=== PATIENT | female | born 1970 | race Caucasian/White ===

== ENCOUNTER 2017-02-02 19:46 | Emergency (ER) | payer BC ==
[2017-02-02 20:28] VITALS: BP 110/74
--- NOTE | 2017-02-02 20:31 | UC ---
Throat Pain/Nasal René HPI - HPI Summary HPI Summary: complaint of sore throat that started yesterday pain has been increasing fever started today denies nasal congestion and cough feels like her body is aching daughter has strep throat took some ibuprofen at 1900 with some relief 3 weeks late for menses LMP 12/20/16 took home tests that were negative last week doesn't feel - usually gets morning sickness, denies breast tenderness or fatigue - History of Current Complaint Chief Complaint: UCRespiratory Stated Complaint: THROAT PAIN Time Seen by Provider: 02/02/17 20:28 Hx Obtained From: Patient Hx Last Menstrual Period: 3 weeks late - Allergies/Home Medications Allergies/Adverse Reactions: Allergies Allergy/AdvReac Type Severity Reaction Status Date / Time No Known Allergies Allergy Verified 02/02/17 20:28 PMH/Surg Hx/FS Hx/Imm Hx Previously Healthy: Yes - Surgical History Surgical History: Yes Surgery Procedure, Year, and Place: sinus - Family History Known Family History: Negative: Cardiac Disease, Hypertension, Diabetes - Social History Occupation: Employed Full-time Lives: With Family Alcohol Use: None Substance Use Type: None Smoking Status (MU): Never Smoked Tobacco Review of Systems Constitutional: Fever Skin: Negative Eyes: Negative ENT: Sore Throat Respiratory: Negative Cardiovascular: Negative Gastrointestinal: Negative Genitourinary: Negative Motor: Negative Neurovascular: Negative Musculoskeletal: Negative Neurological: Negative Psychological: Negative All Other Systems Reviewed And Are Negative: Yes Physical Exam Triage Information Reviewed: Yes Appearance: No Pain Distress, Well-Nourished Vital Signs: Initial Vital Signs Temp 99.8 F 02/02/17 20:22 Pulse 104 02/02/17 20:22 Resp 16 02/02/17 20:22 BP 110/74 02/02/17 20:22 Pulse Ox 99 02/02/17 20:22 Vital Signs Reviewed: Yes Eyes: Positive: Conjunctiva Clear ENT: Positive: Pharyngeal erythema, TMs normal. Negative: Nasal congestion, Nasal drainage Dental: Positive: Cervical Lymphadenopathy Respiratory: Positive: Lungs clear, Normal breath sounds, No respiratory distress Cardiovascular: Positive: RRR, No Murmur, Pulses Normal Abdomen Description: Positive: Nontender, Soft Bowel Sounds: Positive: Present Musculoskeletal: Positive: No Edema Neurological: Positive: Alert Psychological Exam: Normal Skin Exam: Normal Throat Pain/Nasal Course/Dx - Differential Dx/Diagnosis Differential Diagnosis/HQI/PQRI: Pharyngitis, Tonsillitis, Other - strep Provider Diagnoses: strep pharyngitis Discharge - Discharge Plan Condition: Stable Disposition: HOME Prescriptions: Penicillin VK TAB* [Penicillin VK 250 mg Tab*] 500 mg PO TID #30 tab Patient Education Materials: Strep Throat (ED) Referrals: No Primary Care Phys,NOPCP [Primary Care Provider] - [facility] [place] [facility] [Outside] Additional Instructions: Start antibiotic as directed Increase fluids and rest Take acetaminophen or ibuprofen for fever or pain Please review your discharge instructions. If your symptoms do not improve please call your primary care provider or return to urgent care
[2017-02-02] MEDS ORDERED: Penicillin VK TAB* 250 MG PO ONE (20:50)
== END 2017-02-02 21:00 | disposition home or self-care (01) ==
LOC: UCEAST 19:46
DX: J02.0 Streptococcal pharyngitis (principal); Z32.02 Encounter for pregnancy test, result negative
CPT/HCPCS: 84702; 87651; 99212; A9270-GY; G0463

== ENCOUNTER 2017-02-21 19:39 | Emergency (ER) | payer BC ==
[2017-02-21 20:21] VITALS: BP 111/75
[2017-02-21] MEDS ORDERED: Amoxicillin CAP* 500 MG PO ONE (20:44)
--- NOTE | 2017-02-21 20:50 | UC ---
Throat Pain/Nasal René HPI - HPI Summary HPI Summary: ST since yesterday, [place] for the last week or so. Pt and 3 kids all tx for strep 2.5 weeks ago, all got better, now all sick again and 3 kids dx with strep again over the weekend. Denies fever or trouble breathing. - History of Current Complaint Chief Complaint: UCGeneralIllness Stated Complaint: SORE THROAT Time Seen by Provider: 02/21/17 20:22 Hx Obtained From: Patient Hx Last Menstrual Period: 02/07/2017 Onset/Duration: Gradual Onset, Lasting Hours Severity: Moderate Cough: None Associated Signs & Symptoms: Negative: Fever, Vomiting, Rash - Allergies/Home Medications Allergies/Adverse Reactions: Allergies Allergy/AdvReac Type Severity Reaction Status Date / Time No Known Allergies Allergy Verified 02/21/17 20:14 Home Medications: Home Medications Multi Vitamin with Iron 1 tab PO DAILY 02/21/17 [History Confirmed 02/21/17] PMH/Surg Hx/FS Hx/Imm Hx Endocrine History Of: Denies: Diabetes, Thyroid Disease Cardiovascular History Of: Denies: Cardiac Disorders, Hypertension Respiratory History Of: Denies: COPD, Asthma GI/ History Of: Denies: Ulcer - Surgical History Surgical History: Yes Surgery Procedure, Year, and Place: sinus - Family History Known Family History: Negative: Cardiac Disease, Hypertension, Diabetes - Social History Alcohol Use: None Substance Use Type: None Smoking Status (MU): Never Smoked Tobacco - Immunization History Most Recent Influenza Vaccination: years ago Most Recent Tetanus Shot: unknown Review of Systems Constitutional: Negative Skin: Negative Eyes: Negative ENT: Sore Throat Respiratory: Negative Cardiovascular: Negative Gastrointestinal: Negative Genitourinary: Negative Motor: Negative Neurovascular: Negative Musculoskeletal: Negative Neurological: Negative Psychological: Negative All Other Systems Reviewed And Are Negative: Yes Physical Exam Triage Information Reviewed: Yes Appearance: Well-Appearing, No Pain Distress, Well-Nourished Vital Signs: Initial Vital Signs Temp 99.0 F 02/21/17 20:15 Pulse 86 02/21/17 20:15 Resp 17 02/21/17 20:15 BP 111/75 02/21/17 20:15 Pulse Ox 100 02/21/17 20:15 Vital Signs Reviewed: Yes Eye Exam: Normal Eyes: Positive: Conjunctiva Clear ENT: Positive: Hearing grossly normal, Pharyngeal erythema - mild, TMs normal, Tonsillar swelling Dental Exam: Normal Neck exam: Normal Neck: Positive: Supple, Nontender Respiratory Exam: Normal Respiratory: Positive: Chest non-tender, Lungs clear, Normal breath sounds, No respiratory distress, No accessory muscle use Cardiovascular Exam: Normal Cardiovascular: Positive: RRR, No Murmur Musculoskeletal Exam: Normal Neurological Exam: Normal Neurological: Positive: Alert Psychological Exam: Normal Skin Exam: Normal Throat Pain/Nasal Course/Dx - Differential Dx/Diagnosis Provider Diagnoses: strep throat Discharge - Discharge Plan Condition: Stable Disposition: HOME Prescriptions: Amoxicillin (*) [Amoxicillin 875 MG (*)] 875 mg PO BID #19 tab Patient Education Materials: Strep Throat (ED) Referrals: No Primary Care Phys,NOPCP [Primary Care Provider] -
== END 2017-02-21 20:50 | disposition home or self-care (01) ==
LOC: UCEAST 19:39
DX: J02.0 Streptococcal pharyngitis (principal)
CPT/HCPCS: 87651; 99212; A9270-GY; G0463

== ENCOUNTER 2017-03-08 19:50 | Emergency (ER) | payer BC ==
[2017-03-08 21:22] VITALS: BP 126/69
--- NOTE | 2017-03-08 21:47 | UC ---
Throat Pain/Nasal René HPI - HPI Summary HPI Summary: Pt presents with c/o sore throat. Pt states that her children have been "passing strep throat throughout the house" Pt was diagnosed with strep thorat 1 months ago. Pt's son was diagnosed today with strep today. - History of Current Complaint Chief Complaint: UCRespiratory Stated Complaint: SORE THROAT Time Seen by Provider: 03/08/17 21:21 Hx Obtained From: Patient Hx Last Menstrual Period: 02/07/2017 ?: No Onset/Duration: Sudden Onset, Lasting Hours Severity: Mild Cough: None Associated Signs & Symptoms: Positive: Dysphagia - Epiglottits Risk Factors Epiglottis Risk Factors: Sudden Onset - Allergies/Home Medications Allergies/Adverse Reactions: Allergies Allergy/AdvReac Type Severity Reaction Status Date / Time No Known Allergies Allergy Verified 02/21/17 20:14 PMH/Surg Hx/FS Hx/Imm Hx Previously Healthy: Yes Endocrine History Of: Denies: Diabetes, Thyroid Disease Cardiovascular History Of: Denies: Cardiac Disorders, Hypertension Respiratory History Of: Denies: COPD, Asthma GI/ History Of: Denies: Ulcer - Surgical History Surgical History: Yes Surgery Procedure, Year, and Place: sinus - Family History Known Family History: Negative: Cardiac Disease, Hypertension, Diabetes - Social History Lives: With Family Alcohol Use: None Substance Use Type: None Smoking Status (MU): Never Smoked Tobacco - Immunization History Most Recent Influenza Vaccination: years ago Most Recent Tetanus Shot: unknown Review of Systems Constitutional: Negative Skin: Negative Eyes: Negative ENT: Sore Throat Respiratory: Negative Cardiovascular: Negative Gastrointestinal: Negative Genitourinary: Negative Motor: Negative Neurovascular: Negative Musculoskeletal: Myalgia Neurological: Headache Psychological: Negative All Other Systems Reviewed And Are Negative: Yes Physical Exam Triage Information Reviewed: Yes Appearance: Well-Appearing Vital Signs: Initial Vital Signs Temp 98.5 F 03/08/17 21:15 Pulse 87 03/08/17 21:15 Resp 18 03/08/17 21:15 BP 126/69 03/08/17 21:15 Pulse Ox 100 03/08/17 21:15 Eye Exam: Normal ENT Exam: Other ENT: Positive: Pharyngeal erythema Neck: Positive: Enlarged Nodes @ - bialtaeral submandibualr Respiratory Exam: Normal Cardiovascular Exam: Normal Musculoskeletal Exam: Normal Neurological Exam: Normal Psychological Exam: Normal Skin Exam: Normal Throat Pain/Nasal Course/Dx - Differential Dx/Diagnosis Differential Diagnosis/HQI/PQRI: Pharyngitis, Tonsillitis Provider Diagnoses: Pharyngitis Discharge - Discharge Plan Condition: Stable Disposition: HOME Prescriptions: Penicillin VK TAB 500 MG(NF) [Penicillin VK 500 mg Tab(NF)] 500 mg PO Q8H #21 tab Patient Education Materials: Pharyngitis (ED) Referrals: [facility] [place] [facility] [Outside] No Primary Care Phys,NOPCP [Primary Care Provider] - If Needed Additional Instructions: Please follow up with your PCP or return to clinic as needed.
[2017-03-08] MEDS ORDERED: Penicillin VK LIQ* 250 MG/5 ML BTL PO ONE (21:51)
== END 2017-03-08 22:30 | disposition home or self-care (01) ==
LOC: UCEAST 19:50
DX: J02.9 Acute pharyngitis, unspecified (principal)
CPT/HCPCS: 87651; 99212; A9270-GY; G0463

== ENCOUNTER 2019-07-06 06:37 | Day surgery (SDC) | payer BC ==
--- NOTE | 2019-06-28 06:55 | HP ---
CC: Dr. Octavio Robert * ADMITTING HISTORY AND PHYSICAL: DATE OF ADMISSION: 07/06/19 - [facility] ADMITTING DIAGNOSIS: Bladder lesion. PLANNED PROCEDURE: Cystoscopy, excision biopsy of bladder lesion. SURGEON: Dr. Melendez. HISTORY OF PRESENT ILLNESS: Nancy Cesar is a 48-year-old lady who for the last 10 days has had increased urinary frequency, urgency, and discomfort associated with the full bladder. She was evaluated by Dr. Robert who originally on examination noted what appeared to be a mass in the area of the dome of the bladder. It was subsequently confirmed by him on a pelvic sonogram. Cystoscopy done in my office revealed 2 to 3 cm near the dome of the bladder with the mass effect but completely normal overlying mucosa. My initial thought was that this may be related to a urachal remnant and a CT scan was obtained which showed some irregularity within this mass raising the concern for possible neoplasm and she is now being brought in for excision biopsies of the same. PAST MEDICAL HISTORY: Unremarkable. PAST SURGICAL HISTORY: Significant for surgery for deviated nasal septum. MEDICATIONS ON ADMISSION: None. ALLERGIES: No known drug allergies. FAMILY HISTORY: Negative for transitional cell carcinoma. SOCIAL HISTORY: Smoking history: She is a nonsmoker. REVIEW OF SYSTEMS: She is otherwise in excellent health. There is no history of diabetes mellitus or any other major systemic illness. PHYSICAL EXAMINATION GENERAL: Reveals a pleasant, healthy-appearing young lady. VITAL SIGNS: Blood pressure is 120/70, pulse 93 per minute and regular, oxygen saturation 97% on room air, temperature 97. LUNGS: Clear bilaterally. CARDIOVASCULAR: Regular rate and rhythm. S1, S2. ABDOMEN: Soft with no flank tenderness. IMPRESSION: A 48-year-old lady with fairly recent onset of irritative voiding symptoms and mass in the area of the dome of the bladder with normal overlying mucosa. Plan is for cystoscopy, excision biopsy. I have discussed the procedure and possible risks including bleeding, infection, perforation of the bladder, and also explained likely the need for Ledesma catheterization for at least 1 to 3 days postoperatively. PLAN: Cystoscopy, excision biopsies of bladder lesion. [id number]/[facility] #: [id number] MTDD
[~2019-07-06 06:37] MED LIST: Buffered Lidocaine 1% SYRIN* 1 ML/SYRINGE INTRADERM ONE; Dexamethasone IV* 4 MG/ML 1 ML (4 MG) IV SLOW PU ONE; Famotidine IV* 10 MG/ML 2 ML (20 mg) IV ONE; Lactated Ringers 1000 ML Bag* 1,000 ML IV SCH
[2019-07-06] MEDS ORDERED: Dexamethasone IV* 4 MG/ML 1 ML (4 MG) ONE (07:17)
[2019-07-06] MEDS ORDERED: cefTRIAXone(*) 2 GM ADDV.VIAL IVPB ONE (07:17)
[2019-07-06] MEDS ORDERED: Buffered Lidocaine 1% SYRIN* 1 ML/SYRINGE INTRADERM ONE (07:18)
[2019-07-06] MEDS ORDERED: Famotidine IV* 10 MG/ML 2 ML (20 mg) ONE (07:18)
[2019-07-06] MEDS ORDERED: fentaNYL* 50 MCG/ML 2 ML VIAL (100 MCG VIAL) ONE (08:01)
[2019-07-06] MEDS ORDERED: Midazolam* 1 MG/ML 5 ML VIAL (5 MG) ONE (08:02)
[2019-07-06] MEDS ORDERED: Propofol* 10 MG/ML 20 ML BTL ONE (08:02)
[2019-07-06] MEDS ORDERED: Lidocaine 2% PF * 5 ML VIAL ONE (08:02)
[2019-07-06] MEDS ORDERED: Ketorolac INJ* 30 MG/ML 1 ML VIAL IV PRN (08:25)
[2019-07-06] MEDS ORDERED: Naloxone* 0.4 MG/ML 1 ML VIAL IV PRN (08:25)
[2019-07-06] MEDS ORDERED: HYDROcodone/ACETAMIN 5-325 MG* 1 TAB PO PRN (08:25)
[2019-07-06] MEDS ORDERED: fentaNYL* 50 MCG/ML 2 ML VIAL (100 MCG VIAL) IV PRN (08:25)
[2019-07-06] MEDS ORDERED: DiMENhydriNATE IV* 50 MG/ML VIAL IV PUSH PRN (08:25)
[2019-07-06] MEDS ORDERED: Ibuprofen TAB* 600 MG PO PRN (08:25)
[2019-07-06] MEDS ORDERED: oxyCODONE TAB* 5 MG TAB PO PRN (08:25)
[2019-07-06] MEDS ORDERED: Ondansetron INJ* 2 MG/ML VIAL ONE (08:54)
[2019-07-06] MEDS ORDERED: Furosemide IV* 10 MG/ML 2 ML VIAL (20 MG) ONE (08:59)
[2019-07-06] MEDS ORDERED: DiMENhydriNATE IV* 50 MG/ML VIAL ONE (10:01)
[2019-07-06] MEDS ORDERED: Ibuprofen TAB* 200 MG ONE (10:02)
--- NOTE | 2019-07-06 11:27 | OP ---
OPERATIVE REPORT: DATE OF OPERATION: 07/06/19 DATE OF : 74 SURGEON: Moo Melendez MD. ANESTHESIOLOGIST: Dr. Kong. ANESTHESIA: General. PRE-OP DIAGNOSIS: Bladder lesion (possible urachal remnant). POST-OP DIAGNOSIS: Bladder lesion (possible urachal remnant). OPERATIVE PROCEDURE: Cystoscopy, excision biopsy and fulguration of bladder lesion. COMPLICATIONS: None. BLOOD LOSS: Minimal. INDICATIONS: Nancy Cesar is a 48-year-old lady who had onset of irritated voiding symptoms in the f orm of frequency and bladder pressure. She was evaluated by Dr. Robert and was noted to have a blad chavo lesion, which was confirmed on office cystoscopy. Since the mucosa over the lesion appears srini h, my feeling is that this may represent a urachal remnant, possibly with some inflammatory response. She is now being brought in for excision biopsy and fulguration. OPERATIVE FINDINGS: A 3 to 4 cm area near the dome of the bladder with protrusion, but normal overly ing mucosa. DESCRIPTION OF PROCEDURE: After induction of general anesthesia, the patient was placed in dorsal li thotomy position. Sequential compression devices were in place and functioning. Initial cystoscopy revealed normally located right and left ureteral orifices with clear efflux noted. In the dome of t he bladder, there was an approximately 3 to 4 cm area of significant protrusion with normal overlying mucosa. The remainder of the bladder was unremarkable. Using biopsy forceps, denial management representative biopsi es were obtained and sent for histopathology. The lesion did not have the appearance of a submucosal cyst, which was another possibility in the differential diagnosis, and after denial management representative biopsies were obtained, the area was carefully cauterized initially using the Bugbee and later on using the l oop of the resectoscope. At the end of the procedure, hemostasis appeared satisfactory and there was no evidence of bladder perforation. A Ledesma catheter, size 20- Armenian, was placed without difficult y and connected to a drainage bag. The patient tolerated the procedure satisfactorily and was transf erred back to the recovery area in stable condition. [id number]/[facility] #: [id number]
[2019-07-06 11:42] VITALS: BP 111/71
== END 2019-07-06 11:47 | disposition home or self-care (01) ==
LOC: OR 06:37
PROVIDERS: ATTEND Urology
DX: N32.89 Other specified disorders of bladder (principal); K21.9 Gastro-esophageal reflux disease without esophagitis
CPT/HCPCS: 81025; 88305; A9270-GY; J0696; J1100; J1240; J1940; J2250; J2405; J2704; J3010